=== PATIENT | female | born 1965 ===

== ENCOUNTER 2018-01-08 10:04 | Emergency (ER) | payer OTHER ==
[2018-01-08 10:05] VITALS: BMI 28.0
[2018-01-08 11:05] VITALS: O2SAT 98
--- NOTE | 2018-01-08 11:56 | RAD ---
HISTORY: dry cough, upper back pain, fever COMPARISON: No prior. TECHNIQUE: Chest PA and lateral FINDINGS: LUNGS: No infiltrate. Probable granulomatous calcifications in both upper lobes. PLEURA: No significant pleural effusion identified. No pneumothorax apparent. CARDIOVASCULAR: Normal. OSSEOUS STRUCTURES: No significant abnormalities. VISUALIZED UPPER ABDOMEN: Normal. OTHER FINDINGS: None. IMPRESSION: No acute infiltrate. Probable old granulomatous disease.
--- NOTE | 2018-01-08 12:23 | C.PDOC ---
History Of Present Illness Patient c/o flu like symptoms such as body aches, cough, nasal congestion, sore throat, headache, upper back pain for 3 days. Patient denies fever, abdominal pain, vomiting, diarrhea. Chief Complaint (Nursing): Flu-like Symptoms History Per: Patient History/Exam Limitations: no limitations Onset/Duration Of Symptoms: Days Current Symptoms Are (Timing): Still Present Associated Symptoms: Sore Throat, Cough, Nasal Congestion. denies: Fever, Vomiting, Diarrhea Severity: Moderate Past Medical History Reviewed: Historical Data, Nursing Documentation, Vital Signs Vital Signs: Last Vital Signs Temp 99.4 F 01/08/18 12:35 Pulse 82 01/08/18 12:35 Resp 18 01/08/18 12:35 BP 121/76 01/08/18 12:35 Pulse Ox 98 01/08/18 13:17 - Medical History PMH: No Chronic Diseases Surgical History: No Surg Hx Family History: States: No Known Family Hx - Social History Hx Alcohol Use: No Hx Substance Use: No - Immunization History Hx Tetanus Toxoid Vaccination: No Hx Influenza Vaccination: No Hx Pneumococcal Vaccination: No Review Of Systems Except As Marked, All Systems Reviewed And Found Negative. Constitutional: Positive for: Malaise. Negative for: Fever, Chills ENT: Positive for: Nose Congestion, Throat Pain Respiratory: Positive for: Cough Gastrointestinal: Negative for: Vomiting, Abdominal Pain, Diarrhea Musculoskeletal: Positive for: Back Pain (upper back pain) Neurological: Positive for: Headache Physical Exam - Physical Exam Appears: Non-toxic, No Acute Distress Skin: Normal Color, Warm Head: Atraumatic, Normacephalic Eye(s): bilateral: Normal Inspection Ear(s): Bilateral: Normal Nose: Normal Oral Mucosa: Moist Throat: Normal, No Erythema, No Exudate Neck: Supple Chest: Symmetrical Cardiovascular: Rhythm Regular Respiratory: Normal Breath Sounds, No Accessory Muscle Use, No Rales, No Rhonchi , No Wheezing Gastrointestinal/Abdominal: Normal Exam, Soft, No Tenderness Back: Normal Inspection, No CVA Tenderness Extremity: Normal ROM Neurological/Psych: Oriented x3, Normal Speech, Normal Motor, Normal Sensation ED Course And Treatment O2 Sat by Pulse Oximetry: 98 (RA) Pulse Ox Interpretation: Normal - Other Rad No standard instances X-Ray: Viewed By Me, Read By Radiologist Interpretation: HISTORY: dry cough, upper back pain, fever. COMPARISON: No prior. TECHNIQUE: Chest PA and lateral. FINDINGS: LUNGS: No infiltrate. Probable granulomatous calcifications in both upper lobes. PLEURA: No significant pleural effusion identified. No pneumothorax apparent. CARDIOVASCULAR: Normal. OSSEOUS STRUCTURES: No significant abnormalities. VISUALIZED UPPER ABDOMEN: Normal. OTHER FINDINGS: None. IMPRESSION: No acute infiltrate. Probable old granulomatous disease. Progress Note: CXR - neg, PE - unremarkable. S/S are consistant with URI. Patient will be d/c home with PMD follow up. Disposition - Disposition Referrals: Louann Alfonso MD [Staff Provider] - Disposition: HOME/ ROUTINE Disposition Time: 12:24 Condition: STABLE Additional Instructions: Follow up with PMD within 1-2 days. Return to ED if feel worse. 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 - Scribe Statement The provider has reviewed the documentation as recorded by the Nel Jamison Provider Attestation All medical record entries made by the Patibe were at my direction and personally dictated by me. I have reviewed the chart and agree that the record accurately reflects my personal performance of the history, physical exam, medical decision making, and the department course for this patient. I have also personally directed, reviewed, and agree with the discharge instructions and disposition.
[2018-01-08 12:36] VITALS: BP 121/76; PULSE 82; RESP 18; TEMP 99.4
== END 2018-01-08 12:36 | disposition home or self-care (01) ==
LOC: C.ER 10:04
DX: J06.9 Acute upper respiratory infection, unspecified (principal)